=== PATIENT | female | born 1940 | race Caucasian/White ===

== ENCOUNTER 2025-02-22 19:29 | Observation (INO) ==
[2025-02-22 19:48] VITALS: BMI 29.9
[2025-02-22 19:56] LABS: ABG ALLEN TEST POS; ABG BASE EXCESS 1.2 mmol/L (-2.0-2.0)
--- NOTE | 2025-02-22 20:06 | DR.GENAD ---
HPI Time Seen Time Seen by Provider: 02/22/25 20:03 PCP Primary Care Physician: Sariah Barragan Complaint/Symptoms Chief Complaint Doctors Comments: Patient complain of 3-day history of hypoxia and some shortness of breath. States she also has bodyaches and congestion. Chief Complaint:: Patient ambulated to triage. Patient is here for compliants of three days of shortness or breath and fatigue. she has been checking her oxygen at home and its been in the 70s. Pt denies any chest pain, nausea, body aches or congestion. Self Treatment fo Chief Complaint: none COVID-19 Coronavirus risk:travel/contact w/high risk person: No Has patient experienced Coronavirus symptoms: No Source History Provided: Patient Mode of Arrival Mode of Arrival: Ambulatory Timing Onset of Chief Complaint: 02/20/25 PMH PMH Past Medical History: Yes Past Medical History: Arthritis, Dyslipidemia, Hypertension and Hyperthyroidism Past Medical History Comment: lupus, Past Surgical History: Yes Surgical History: Joint Replacement and Ortho Surgery Family History History of Family Medical Conditions: Yes Family Medical History: Diabetes Mellitus, Cancer, [place], Coronary Artery Disease and Hypertension Travel Risk Coronavirus risk:travel/contact w/high risk person: No Has patient experienced Coronavirus symptoms: No Infectious screening In the last 2 months have you had wt loss of >10#?: NO Have you had fever, night sweats or hemotysis?: No Have you traveled outside the country in the last 6 months?: No Isolation: Standard ROS Review of Systems Constitutional: Other (shortness of breath,hypoxia) Eyes: No Symptoms Reported ENTM: No Symptoms Reported Respiratoy: Short of Breath and Other (hypoxia) Cardiovascular: No Symptoms Reported Gastrointestinal/Abdominal: No Symptoms Reported Genitourinary: No Symptoms Reported Neurological: No Symptoms Reported Musculoskeletal: No Symptoms Reported Integumentary: No Symptoms Reported Hematologic/Lymphatic: No Symptoms Reported Endocrine: No Symptoms Reported Psychiatric: No Symptoms Reported PE Vital Signs Vitals: Vital Signs Temperature 99.5 F Pulse Rate 67 Pulse Rate 67 Pulse Rate 68 Pulse Rate 77 Pulse Rate 72 Pulse Rate 79 Pulse Rate 64 Pulse Rate 64 Pulse Rate 64 Pulse Rate 64 Pulse Rate 64 Pulse Rate 63 Pulse Rate 64 Pulse Rate 65 Pulse Rate 65 Pulse Rate 68 Pulse Rate 68 Pulse Rate 71 Pulse Rate 68 Pulse Rate 85 Pulse Rate 67 Pulse Rate 68 Pulse Rate 68 Pulse Rate 66 Pulse Rate 68 Pulse Rate 67 Pulse Rate 67 Pulse Rate 68 Pulse Rate 67 Pulse Rate 71 Pulse Rate 69 Pulse Rate 72 Pulse Rate 76 Respiratory Rate 18 Blood Pressure 152/67 Blood Pressure 135/65 Blood Pressure 135/65 Blood Pressure 135/65 Blood Pressure 135/65 Blood Pressure 135/63 Blood Pressure 133/60 Blood Pressure 133/60 Blood Pressure 133/60 Blood Pressure 133/60 Blood Pressure 135/63 Blood Pressure 130/59 Blood Pressure 147/67 Blood Pressure 147/67 Blood Pressure 147/67 Blood Pressure 141/66 Blood Pressure 141/65 Blood Pressure 141/65 Blood Pressure 144/65 Blood Pressure 138/64 Blood Pressure 151/70 Blood Pressure 151/70 O2 Sat by Pulse Oximetry 95 O2 Sat by Pulse Oximetry 95 O2 Sat by Pulse Oximetry 100 O2 Sat by Pulse Oximetry 97 O2 Sat by Pulse Oximetry 95 O2 Sat by Pulse Oximetry 93 O2 Sat by Pulse Oximetry 95 O2 Sat by Pulse Oximetry 94 O2 Sat by Pulse Oximetry 95 O2 Sat by Pulse Oximetry 95 O2 Sat by Pulse Oximetry 95 O2 Sat by Pulse Oximetry 96 O2 Sat by Pulse Oximetry 95 O2 Sat by Pulse Oximetry 96 O2 Sat by Pulse Oximetry 96 O2 Sat by Pulse Oximetry 95 O2 Sat by Pulse Oximetry 97 O2 Sat by Pulse Oximetry 94 O2 Sat by Pulse Oximetry 97 O2 Sat by Pulse Oximetry 74 O2 Sat by Pulse Oximetry 96 O2 Sat by Pulse Oximetry 95 O2 Sat by Pulse Oximetry 95 O2 Sat by Pulse Oximetry 94 O2 Sat by Pulse Oximetry 95 O2 Sat by Pulse Oximetry 94 O2 Sat by Pulse Oximetry 94 O2 Sat by Pulse Oximetry 94 O2 Sat by Pulse Oximetry 95 O2 Sat by Pulse Oximetry 89 O2 Sat by Pulse Oximetry 87 O2 Sat by Pulse Oximetry 91 O2 Sat by Pulse Oximetry 72 General Limitations: Physical Limitation (gets sob if she ambulates 30 feet) General Appearance: In Distress (mild distress at rest,moderate distress when ambulating) Head Head Exam: Normal Inspection, Atraumatic and Normocephalic Eyes Eye exam: Normal Appearance ENT ENT Exam: Normal Exam External Ear Exam: Normal External Inspection TM/Canal Exam: Bilateral: Normal Nose Exam: Normal Nose Exam Mouth Exam: Normal Inspection Throat Exam: Normal Inspection Neck Neck Exam: Normal Inspection Chest Chest Inspection: Normal Inspection and Symmetric Chest Wall Rise Respiratory Respiratory Exam: Prolonged Expiratory Phase Respiratory Exam: Bilateral: Decreased Breath Sounds and Lower: Decreased Breath Sounds Cardiovascular Cardiovascular Exam: Regular Rate Abdominal Exam Abdominal Exam: Normal Inspection, Normal Bowel Sounds and Soft Extremities Extremities Exam: Normal Inspection Back Back Exam: Normal Inspection Neurologic Neurological Exam: Alert, Oriented X3 and CN II-XII Intact Psychiatric Psychiatric Exam: Depressed MDM Differential Diagnosis Differential Diagnosis: viral urti,pneumonia,copd,chf,ami,covid,influenza, COURSE Treatment Treatment: This patient remained relatively stable lungs we kept oxygen on her here in the ER. Wound we allowed her to go to the bathroom to urinate and when she came back O2 sat all ranges dropped to the low 80s. Patient had a workup done for hypoxia and shortness of breath. Her COVID respiratory panel was negative she had a D-dimer that was done over 0.51 was low she had a BMP done was 239 she had a ABG initially when she got here pH was 7.45 pCO2 36 pO2 was 53 HCO3 was 25 and O2 sat was 89%. This patient did have a metabolic panel done this is a sodium was 130 potassium 4.6 her BUN was 16 creatinine 1.38 blood sugar was 149 she did have a CBC done WBC was only 9.7. This patient also had a chest x-ray done that showed that there was not an infiltrate she just had some elevation of her right hemidiaphragm. The troponin that was done it was 11.4. We did give the patient 40 of Lasix in the ER for her peripheral edema and she had a magnesium level of 1.8 so she got 400 mg of magnesium oxide also in the emergency department. This patient also got a DuoNeb and Solu-Medrol 125 mg IV and was maintaining her oxygen at 2 L/min with O2 sat on the oxygen maintaining 94 to 96%. This patient was discussed for admission with Dr. Riley at 0 2:40 AM. She said the patient could be accepted to her services. They called the case management and they said the patient could be referred to observation. Patient was told of the intent to refer her to observation and she was agreeable to the observation. ROR Labs Reviewed Laboratory Results Reviewed?: Yes 02/22/25 19:53 02/22/25 19:53 Laboratory: WBC 9.7 X10^3/uL (3.6-10.0) 02/22/25 19:53 RBC 3.21 X10^6/uL (3.5-5.4) L 02/22/25 19:53 Hgb 9.2 g/dL (12.0-16.0) L 02/22/25 19:53 Hct 27.0 % (36.0-47.0) L 02/22/25 19:53 MCV 84.1 fL (80.0-100.0) 02/22/25 19:53 MCH 28.5 pg (27.0-34.0) 02/22/25 19:53 MCHC 33.9 g/dL (33.0-35.0) 02/22/25 19:53 RDW 13.9 % (11.6-16.5) 02/22/25 19:53 Plt Count 199 X10^3/uL (150.0-450.0) 02/22/25 19:53 MPV 8.9 fL (7.4-11.0) 02/22/25 19:53 Neut % (Auto) 69.1 % (42.0-75.0) 02/22/25 19:53 Lymph % (Auto) 9.9 % (21.0-51.0) L 02/22/25 19:53 [place] % (Auto) 16.2 % (0.0-13.0) H 02/22/25 19:53 Eos % (Auto) 4.0 % (0.9-2.9) H 02/22/25 19:53 Baso % (Auto) 0.8 % (0.2-1.0) 02/22/25 19:53 Neut # (Auto) 6.7 x10^3/uL (2.2-4.8) H 02/22/25 19:53 Lymph # (Auto) 1.0 X10^3/uL (1.3-2.9) L 02/22/25 19:53 [place] # (Auto) 1.6 x10^3/uL (0.3-0.8) H 02/22/25 19:53 Eos # (Auto) 0.4 x10^3/uL (0.0-0.2) H 02/22/25 19:53 Baso # (Auto) 0.1 X10^3/uL (0.0-0.1) 02/22/25 19:53 Absolute Nucleated RBC 0.0 /100WBC 02/22/25 19:53 D-Dimer 0.51 ug/ml (0.0-0.57) 02/22/25 19:53 Sample Site Lr 02/22/25 19:50 ABG pH 7.450 (7.35-7.45) 02/22/25 19:50 ABG pCO2 36.0 mmHg (35.0-45.0) 02/22/25 19:50 ABG pO2 53.0 mmHg (80.0-100.0) L 02/22/25 19:50 ABG HCO3 25.0 mmol/L (22-26) 02/22/25 19:50 ABG O2 Saturation 89.0 % (90-100) L 02/22/25 19:50 ABG Base Excess 1.2 mmol/L (-2.0-2.0) 02/22/25 19:50 Paulie Test Pos 02/22/25 19:50 A-a Gradient 52.0 mmHg 02/22/25 19:50 FiO2 21.0 02/22/25 19:50 Blood Gas Comments Domi well ae 02/22/25 19:50 Sodium 130 mmol/L (136-145) L 02/22/25 19:53 Corrected Sodium 131 mmol/L (136-145) L 02/22/25 19:53 Potassium 4.6 mmol/L (3.5-5.1) 02/22/25 19:53 Chloride 97 mmol/L (98-107) L 02/22/25 19:53 Carbon Dioxide 24.6 mmol/L (21-32) 02/22/25 19:53 BUN 16 mg/dL (7-18) 02/22/25 19:53 Creatinine 1.38 mg/dL (0.55-1.02) H 02/22/25 19:53 Est GFR (MDRD) Af Amer 47 (>60) L 02/22/25 19:53 Est GFR (MDRD) Non-Af 39 (>60) L 02/22/25 19:53 Glucose 149 mg/dL (65-99) H 02/22/25 19:53 Calcium 8.8 mg/dL (8.5-10.1) 02/22/25 19:53 Corrected Calcium TNP 02/22/25 19:53 Magnesium 1.8 mg/dL (2.0-2.9) L 02/22/25 19:53 Total Bilirubin 0.40 mg/dL (0.2-1.0) 02/22/25 19:53 AST 13 Units/L (15-37) L 02/22/25 19:53 ALT 13 Units/L (12-78) 02/22/25 19:53 Alkaline Phosphatase 65 Units/L (46-116) 02/22/25 19:53 Creatine Kinase 57 Units/L (26-192) 02/22/25 19:53 Troponin I High Sens 11.4 ng/L (4.0-60.0) 02/22/25 19:53 B-Natriuretic Peptide 239 pg/mL (0-79) H 02/22/25 19:53 Total Protein 6.6 g/dL (6.4-8.2) 02/22/25 19:53 Albumin 3.6 g/dL (3.4-5.0) 02/22/25 19:53 Globulin 3.0 g/dL (2.5-4.5) 02/22/25 19:53 Albumin/Globulin Ratio 1.2 Ratio (1.1-2.1) 02/22/25 19:53 SARS-CoV-2 (PCR) Negative (NEGATIVE) 02/22/25 19:55 Influenza Type A (PCR) Negative (NEGATIVE) 02/22/25 19:55 Influenza Type B (PCR) Negative (NEGATIVE) 02/22/25 19:55 RSV (PCR) Negative (NEGATIVE) 02/22/25 19:55 Opioid Opioid Risk Tool Age (Herson box if 16-45): No History of Preadolescent Sexual Abuse: No Total: 0 Total Score Risk Category: Low Risk Copyright: Karl DUKES predicting aberrant behaviors Discharge Plan Diagnosis Discharge Problem: Hypoxia, Mild congestive heart failure, Hypomagnesemia, Hyponatremia Discharge Plan Patient Disposition: 09 ADMITTED INPATIENT Condition: Stable Orders to Discharge Patient Discharge Orders: Transfer (Routine); Ordered 02/23/25 Ordered By: Kermit Rios
[2025-02-22 20:11] LABS: BASOPHILS # (AUTO) 0.1 X10^3/uL (0.0-0.1); BASOPHILS % (AUTO) 0.8 % (0.2-1.0); EOSINOPHILS # (AUTO) 0.4 x10^3/uL (0.0-0.2); HEMOGLOBIN 9.2 g/dL (12.0-16.0); LYMPHOCYTES % (AUTO) 9.9 % (21.0-51.0); MEAN CORPUSCULAR HEMOGLOBIN 28.5 pg (27.0-34.0); MEAN CORPUSCULAR HGB CONC 33.9 g/dL (33.0-35.0); MEAN CORPUSCULAR VOLUME 84.1 fL (80.0-100.0); MEAN PLATELET VOLUME 8.9 fL (7.4-11.0); MONOCYTES # (AUTO) 1.6 x10^3/uL (0.3-0.8); MONOCYTES % (AUTO) 16.2 % (0.0-13.0); NEUTROPHILS # (AUTO) 6.7 x10^3/uL (2.2-4.8); NEUTROPHILS % (AUTO) 69.1 % (42.0-75.0); PLATELET COUNT 199 X10^3/uL (150.0-450.0); RED BLOOD COUNT 3.21 X10^6/uL (3.5-5.4); RED CELL DISTRIBUTION WIDTH 13.9 % (11.6-16.5); WHITE BLOOD COUNT 9.7 X10^3/uL (3.6-10.0)
[2025-02-22 20:23] LABS: ALANINE AMINOTRANSFERASE 13 Units/L (12-78); ALBUMIN 3.6 g/dL (3.4-5.0); ALKALINE PHOSPHATASE 65 Units/L (46-116); ASPARTATE AMINO TRANSFERASE 13 Units/L (15-37); BLOOD UREA NITROGEN 16 mg/dL (7-18); CALCIUM 8.8 mg/dL (8.5-10.1); CARBON DIOXIDE 24.6 mmol/L (21-32); CHLORIDE 97 mmol/L (98-107); COR NA(FOR HYPERGLY) 131 mmol/L (136-145); CREATINE KINASE 57 Units/L (26-192); CREATININE 1.38 mg/dL (0.55-1.02); GLUCOSE 149 mg/dL (65-99); MAGNESIUM 1.8 mg/dL (2.0-2.9); POTASSIUM 4.6 mmol/L (3.5-5.1); SODIUM 130 mmol/L (136-145); TOTAL PROTEIN 6.6 g/dL (6.4-8.2); eGFR NON BLACK RACES 39 (>60)
--- NOTE | 2025-02-23 01:21 | RAD ---
EXAM: CHEST, 1 VIEW HISTORY: compliants of three days of shortness or breath and fatigue. she has been checking her oxygen at home and its been in the 70s.; COMPARISON: 05/31/2016 FINDINGS: The trachea is midline. The cardiac silhouette is unremarkable. Right hemidiaphragm is elevated. T he lungs are clear without focal infiltrate or effusion. The bony thorax is unremarkable. IMPRESSION: Elevation of the right hemidiaphragm. No active cardiopulmonary disease THIS IS AN ELECTRONICALLY VERIFIED FINAL REPORT 02/23/2025 1:17 AM - Electronically signed by Rg Perales MD
[2025-02-23] MEDS: DUONEB 0.5 MG/3 MG (3 mL) NEB ONE (01:44)
[2025-02-23] MEDS: SOLU-Medrol 125 MG VIAL IVP ONE (01:44)
[2025-02-23] MEDS: MAG-OX TAB PO ONE (02:02)
[2025-02-23] MEDS: LASIX IVP ONE (02:02)
[2025-02-23 05:16] LABS: BASOPHILS % (AUTO) 0.3 % (0.2-1.0); EOSINOPHILS # (AUTO) 0.1 x10^3/uL (0.0-0.2); EOSINOPHILS % (AUTO) 1.7 % (0.9-2.9); HEMATOCRIT 27.8 % (36.0-47.0); HEMOGLOBIN 9.2 g/dL (12.0-16.0); LYMPHOCYTES # (AUTO) 0.6 X10^3/uL (1.3-2.9); LYMPHOCYTES % (AUTO) 7.1 % (21.0-51.0); MEAN CORPUSCULAR HEMOGLOBIN 27.8 pg (27.0-34.0); MEAN CORPUSCULAR HGB CONC 33.1 g/dL (33.0-35.0); MEAN PLATELET VOLUME 9.3 fL (7.4-11.0); MONOCYTES # (AUTO) 0.4 x10^3/uL (0.3-0.8); NEUTROPHILS # (AUTO) 6.9 x10^3/uL (2.2-4.8); NEUTROPHILS % (AUTO) 85.9 % (42.0-75.0); PLATELET COUNT 212 X10^3/uL (150.0-450.0); RED BLOOD COUNT 3.32 X10^6/uL (3.5-5.4); RED CELL DISTRIBUTION WIDTH 13.8 % (11.6-16.5); WHITE BLOOD COUNT 8.1 X10^3/uL (3.6-10.0)
[2025-02-23 05:45] LABS: ALANINE AMINOTRANSFERASE 16 Units/L (12-78); ALBUMIN 3.7 g/dL (3.4-5.0); ALKALINE PHOSPHATASE 66 Units/L (46-116); ASPARTATE AMINO TRANSFERASE 10 Units/L (15-37); BLOOD UREA NITROGEN 16 mg/dL (7-18); CALCIUM 9.3 mg/dL (8.5-10.1); CHLORIDE 98 mmol/L (98-107); COR NA(FOR HYPERGLY) 134 mmol/L (136-145); CREATININE 1.38 mg/dL (0.55-1.02); GLUCOSE 153 mg/dL (65-99); POTASSIUM 4.7 mmol/L (3.5-5.1); SODIUM 133 mmol/L (136-145); TOTAL PROTEIN 6.9 g/dL (6.4-8.2); eGFR NON BLACK RACES 39 (>60)
[2025-02-23] MEDS: MAG-OX TAB PO SCH (08:43)
[2025-02-23] MEDS: PLAQUENIL PO SCH (08:43)
[2025-02-23] MEDS: COREG TAB 25 MG PO SCH (08:43)
[2025-02-23] MEDS: BENICAR PO SCH (08:44)
[2025-02-23] MEDS: SYNTHROID 88 mcg TAB PO SCH (08:44)
[2025-02-23] MEDS: PROCARDIA XL 24-HR PO SCH (08:45)
[2025-02-23] MEDS: ZOLOFT PO SCH (08:45)
[2025-02-23] MEDS: ISOSORBIDE DINITRATE PO SCH (08:46)
[2025-02-23] MEDS: HYDROCHLOROTHIAZIDE 25 MG TAB PO SCH (08:47)
[2025-02-23] MEDS: PriLOSEC PO SCH (08:48)
[2025-02-23] MEDS: ROCEPHIN VIAL 1 GRAM IV SCH (08:48)
[2025-02-23] MEDS: LASIX IVP SCH (08:49)
[2025-02-23] MEDS ORDERED: OLMESARTAN MEDOXOMIL HYDROCHLO PO SCH (09:00)
[2025-02-23] MEDS ORDERED: PATIENT'S HOME MEDICATION (Omeprazole 40 mg capsule,delayed release(DR/EC)) PO SCH (09:00)
[2025-02-23] MEDS ORDERED: [UNRECOGNIZED DRUG - OTHER] PO SCH (09:00)
[2025-02-23] MEDS: PULMICORT NEB TX 0.5 MG NEB SCH (11:08)
--- NOTE | 2025-02-23 11:12 | DR.H&P ---
H&P History & Physical for Day of: H&P Date: 02/23/25 Chief Complaint Chief Complaint: Shortness of breath History of Present Illness History of Present Illness: Ms. Head is a 4-year-old female with a past medical history of hypertension, hypothyroidism, arthritis, hyperlipidemia, GERD and insomnia presented with worsening shortness of breath. She states she noted that her O2 sats on the pulse ox at home was in the low 80s. Denies any cough or congestion. She does not use oxygen at home. ER workup showed elevated BNP, negative D-dimer, troponin negative. ABG was concerning for hypoxia. She was placed on nasal cannula at 3 to 4 L. Chest x-ray did not show any acute changes. She was started on IV Rocephin and IV Lasix. She is currently on 3.5 L nasal cannula. She does have lower extremity edema. Denies any previous history of CAD or CHF. Labs/imaging reviewed: -WBC 8.1 hemoglobin 9.2 potassium 4.7 creatinine 1.38 BNP 239 troponin negative D-dimer negative -ABG 7.4 , 89% Plan: Wean O2 as tolerated, add bronchodilators. Will order CTA chest to evaluate further. Continue IV antibiotics. Continue IV Lasix. Patient has not had an echocardiogram done in a while. Resume home medications. Monitor I's and O's, daily weight. Physical therapy as tolerated. Monitor a.m. labs and im aging. Time spent for clinical assessment, reviewing labs and imaging, physical exam, decision making and documentation greater than 45 minutes. Past Medical History Past Medical History: Arthritis, Dyslipidemia, Hypertension and Hyperthyroidism Past Surgical History Surgical History: [employer] Surgery and Ortho Surgery Family History Family Medical History: Diabetes Mellitus, Cancer, [place], Coronary Artery Disease and Hypertension Social History Does patient currently use any type of tobacco product: No Type of Tobacco Use: None Does any household member use tobacco: No Alcohol Use: None Drug Use: None Medications Home Medications: Home Medications Medication Instructions Recorded Confirmed Type Olmesartan Medoxomil-Hydrochlo 40 mg PO DAILY 05/07/14 02/23/25 History [Benicar HCT 40 mg/25 mg] carvedilol 25 mg tablet 25 mg PO BID 02/22/25 02/22/25 History hydroxychloroquine 200 mg tablet 200 mg PO QDAY 02/22/25 02/22/25 History isosorbide dinitrate 5 mg tablet 5 mg PO BID 02/22/25 02/22/25 History levothyroxine 88 mcg tablet 88 mcg PO QDAY 02/22/25 02/22/25 History nifedipine 60 mg tablet,extended 60 mg PO BID 02/22/25 02/22/25 History release 24 hr omeprazole 40 mg capsule,delayed 40 mg PO QDAY 02/22/25 02/22/25 History release sertraline 50 mg tablet 50 mg PO QDAY 02/22/25 02/22/25 History zolpidem 10 mg tablet 10 mg PO QPM PRN 02/22/25 02/22/25 History meloxicam 15 mg tablet 15 mg PO QDAY 02/23/25 02/23/25 History ropinirole 1 mg tablet 1 mg PO QPM 02/23/25 02/23/25 History sulfasalazine 500 mg tablet 500 mg PO DAILY 02/23/25 02/23/25 History Allergies Allergies Allergy/AdvReac Type Severity Reaction Status Date / Time No Known Allergies Allergy Verified 02/22/25 20:07 Labs 02/23/25 04:36 02/23/25 04:36 Labs: Laboratory WBC 8.1 X10^3/uL (3.6-10.0) 02/23/25 04:36 RBC 3.32 X10^6/uL (3.5-5.4) L 02/23/25 04:36 Hgb 9.2 g/dL (12.0-16.0) L 02/23/25 04:36 Hct 27.8 % (36.0-47.0) L 02/23/25 04:36 MCV 84.0 fL (80.0-100.0) 02/23/25 04:36 MCH 27.8 pg (27.0-34.0) 02/23/25 04:36 MCHC 33.1 g/dL (33.0-35.0) 02/23/25 04:36 RDW 13.8 % (11.6-16.5) 02/23/25 04:36 Plt Count 212 X10^3/uL (150.0-450.0) 02/23/25 04:36 MPV 9.3 fL (7.4-11.0) 02/23/25 04:36 Neut % (Auto) 85.9 % (42.0-75.0) H 02/23/25 04:36 Lymph % (Auto) 7.1 % (21.0-51.0) L 02/23/25 04:36 [place] % (Auto) 5.0 % (0.0-13.0) 02/23/25 04:36 Eos % (Auto) 1.7 % (0.9-2.9) 02/23/25 04:36 Baso % (Auto) 0.3 % (0.2-1.0) 02/23/25 04:36 Neut # (Auto) 6.9 x10^3/uL (2.2-4.8) H 02/23/25 04:36 Lymph # (Auto) 0.6 X10^3/uL (1.3-2.9) L 02/23/25 04:36 [place] # (Auto) 0.4 x10^3/uL (0.3-0.8) 02/23/25 04:36 Eos # (Auto) 0.1 x10^3/uL (0.0-0.2) 02/23/25 04:36 Baso # (Auto) 0.0 X10^3/uL (0.0-0.1) 02/23/25 04:36 Absolute Nucleated RBC 0.1 /100WBC 02/23/25 04:36 D-Dimer 0.51 ug/ml (0.0-0.57) 02/22/25 19:53 Sample Site Lr 02/22/25 19:50 ABG pH 7.450 (7.35-7.45) 02/22/25 19:50 ABG pCO2 36.0 mmHg (35.0-45.0) 02/22/25 19:50 ABG pO2 53.0 mmHg (80.0-100.0) L 02/22/25 19:50 ABG HCO3 25.0 mmol/L (22-26) 02/22/25 19:50 ABG O2 Saturation 89.0 % (90-100) L 02/22/25 19:50 ABG Base Excess 1.2 mmol/L (-2.0-2.0) 02/22/25 19:50 Paulie Test Pos 02/22/25 19:50 A-a Gradient 52.0 mmHg 02/22/25 19:50 FiO2 21.0 02/22/25 19:50 Blood Gas Comments Domi well ae 02/22/25 19:50 Sodium 133 mmol/L (136-145) L 02/23/25 04:36 Corrected Sodium 134 mmol/L (136-145) L 02/23/25 04:36 Potassium 4.7 mmol/L (3.5-5.1) 02/23/25 04:36 Chloride 98 mmol/L (98-107) 02/23/25 04:36 Carbon Dioxide 26.0 mmol/L (21-32) 02/23/25 04:36 BUN 16 mg/dL (7-18) 02/23/25 04:36 Creatinine 1.38 mg/dL (0.55-1.02) H 02/23/25 04:36 Est GFR (MDRD) Af Amer 47 (>60) L 02/23/25 04:36 Est GFR (MDRD) Non-Af 39 (>60) L 02/23/25 04:36 Glucose 153 mg/dL (65-99) H 02/23/25 04:36 Calcium 9.3 mg/dL (8.5-10.1) 02/23/25 04:36 Corrected Calcium TNP 02/23/25 04:36 Magnesium 1.8 mg/dL (2.0-2.9) L 02/22/25 19:53 Total Bilirubin 0.50 mg/dL (0.2-1.0) 02/23/25 04:36 AST 10 Units/L (15-37) L 02/23/25 04:36 ALT 16 Units/L (12-78) 02/23/25 04:36 Alkaline Phosphatase 66 Units/L (46-116) 02/23/25 04:36 Creatine Kinase 57 Units/L (26-192) 02/22/25 19:53 Troponin I High Sens 11.4 ng/L (4.0-60.0) 02/22/25 19:53 B-Natriuretic Peptide 239 pg/mL (0-79) H 02/22/25 19:53 Total Protein 6.9 g/dL (6.4-8.2) 02/23/25 04:36 Albumin 3.7 g/dL (3.4-5.0) 02/23/25 04:36 Globulin 3.2 g/dL (2.5-4.5) 02/23/25 04:36 Albumin/Globulin Ratio 1.2 Ratio (1.1-2.1) 02/23/25 04:36 SARS-CoV-2 (PCR) Negative (NEGATIVE) 02/22/25 19:55 Influenza Type A (PCR) Negative (NEGATIVE) 02/22/25 19:55 Influenza Type B (PCR) Negative (NEGATIVE) 02/22/25 19:55 RSV (PCR) Negative (NEGATIVE) 02/22/25 19:55 Review of Systems Constitutional: Weakness Eyes: No Symptoms Reported ENT: No Symptoms Reported Respiratory: Shortness of Breath and SOB with Excertion Cardiovascular: Edema Gastrointestinal: No Symptoms Reported Genitourinary: No Symptoms Reported Musculoskeletal: No Symptoms Reported Skin: No Symptoms Reported Neurological: No Symptoms Reported Physical Exam Vital Signs: Vital Signs Temperature 97.9 F Temperature 97.4 F Pulse Rate [Brachial] 73 Pulse Rate [Brachial] 72 Pulse Rate 67 Respiratory Rate 19 Respiratory Rate 19 Blood Pressure [Right Arm] 145/67 Blood Pressure [Right Arm] 158/70 O2 Sat by Pulse Oximetry 98 O2 Sat by Pulse Oximetry 93 O2 Sat by Pulse Oximetry 94 Oriented: Normal Eyes: Normal Respiratory: RUL Rhonchi, RLL Rales and LLL Rales Cardiovascular: Normal and Edema Auscultation: Bowel Sounds: Normal Palpation: Normal Tenderness: Normal Skin: Normal Musculoskeletal: Normal Psychiatric: Normal Mood Description: Calm Affect: Normal Speech Pattern: Clear and Appropriate Assessment/Plan (1) Acute respiratory failure: Qualifiers: Respiratory failure complication: hypoxia Qualified Code(s): J96.01 - Acute respiratory failure with hypoxia Status: Acute (2) Edema: Qualifiers: Edema type: unspecified Qualified Code(s): R60.9 - Edema, unspecified Status: Acute (3) Hypertension: Qualifiers: Hypertension type: primary hypertension Qualified Code(s): I10 - Essential (primary) hypertension Status: Chronic (4) GERD (gastroesophageal reflux disease): Qualifiers: Esophagitis presence: esophagitis presence not specified Qualified Code(s): K21.9 - Gastro-esophageal reflux disease without esophagitis Status: Chronic (5) Hypothyroidism: Qualifiers: Hypothyroidism type: acquired Qualified Code(s): E03.9 - Hypothyroidism, unspecified Status: Chronic (6) History of anemia: Status: Chronic (7) Anxiety: Status: Chronic Review H&P Reviewed: Yes Patient was examined?: Yes
--- NOTE | 2025-02-23 12:10 | CT ---
EXAM: CTA, CHEST HISTORY: WORSENING HYPOXIA ; SOB COMPARISON: No relevant prior studies were available for comparison at the time of interpretation.. TECHNIQUE: CT images were obtained. Multiplanar reconstructions were created on a separate workstation and used during interpretation. All CT scans at this facility is dose modulation, iterative reconstruction, an d/or weight-based dosing as appropriate to reduce radiation to levels as low as reasonably achievable (ALARA). Postprocessing details, radiation dose, and contrast dose (if applicable) are recorded in t he patient's medical record. 3D maximum intensity projection images were obtained and evaluated. FINDINGS: Lower Neck: No acute soft tissue abnormality. No actionable thyroid nodule. Lymph nodes: No visualized cervical, supraclavicular, axillary, mediastinal, or hilar adenopathy Upper abdomen: No acute abnormality identified in the visualized upper abdomen. Cardiomediastinum: No right heart strain. Coronary calcifications noted Vascular: The thoracic aorta is widely patent. No significant stenosis of the major branch vessels. There is no thrombus within the pulmonary arteries down to the subsegmental level. Pulmonary arterie s are dilated Lungs: There is a right hemidiaphragm elevation . There are ground-glass opacities seen in a perivas cular distribution. There is septal thickening. There is left base atelectasis. There is a consoli dation with air bronchograms in the inferior portion of the right upper lobe. No effusion or pneumot horax Osseous structures: No acute osseous abnormality. No destructive osseous lesion. IMPRESSION: 1. No PE 2. Findings suggest heart failure exacerbation with pulmonary edema 3. Right hemidiaphragm elevation and compressive atelectasis are noted. Inferior right upper lobe co nsolidation with air bronchograms is noted. Pneumonia can not be ruled out THIS IS AN ELECTRONICALLY VERIFIED FINAL REPORT 02/23/2025 12:07 PM - Electronically signed by Genaro Bhatia MD
[2025-02-23] MEDS ORDERED: NS 250 ML IV 25 ML IV PRN (13:41)
[2025-02-23] MEDS: DUONEB 0.5 MG/3 MG (3 mL) NEB SCH (13:45)
[2025-02-23] MEDS ORDERED: NS 250 ML IV 250 ML IV ONE (15:03)
[2025-02-23] MEDS: ZITHROMAX INJ 500 MG VIAL 500 MG in NS 250 ML IV 250 ML IV SCH (16:10)
[2025-02-23] MEDS: MAALOX or MYLANTA PO PRN (21:16)
[2025-02-23] MEDS: AMBIEN PO PRN (21:17)
[2025-02-23] MEDS: REQUIP PO SCH (21:17)
[2025-02-24 04:52] LABS: BASOPHILS # (AUTO) 0.1 X10^3/uL (0.0-0.1); BASOPHILS % (AUTO) 1.3 % (0.2-1.0); EOSINOPHILS # (AUTO) 0.2 x10^3/uL (0.0-0.2); EOSINOPHILS % (AUTO) 1.9 % (0.9-2.9); HEMATOCRIT 25.2 % (36.0-47.0); HEMOGLOBIN 8.5 g/dL (12.0-16.0); LYMPHOCYTES # (AUTO) 1.5 X10^3/uL (1.3-2.9); LYMPHOCYTES % (AUTO) 16.8 % (21.0-51.0); MEAN CORPUSCULAR HGB CONC 33.7 g/dL (33.0-35.0); MEAN PLATELET VOLUME 8.8 fL (7.4-11.0); MONOCYTES # (AUTO) 1.4 x10^3/uL (0.3-0.8); MONOCYTES % (AUTO) 15.7 % (0.0-13.0); NEUTROPHILS # (AUTO) 5.7 x10^3/uL (2.2-4.8); NEUTROPHILS % (AUTO) 64.3 % (42.0-75.0); PLATELET COUNT 238 X10^3/uL (150.0-450.0); RED BLOOD COUNT 3.03 X10^6/uL (3.5-5.4); WHITE BLOOD COUNT 8.9 X10^3/uL (3.6-10.0)
[2025-02-24 05:07] LABS: ALBUMIN 3.2 g/dL (3.4-5.0); CALCIUM 9.1 mg/dL (8.5-10.1); CARBON DIOXIDE 29.8 mmol/L (21-32); COR CA(FOR HYPOALB) 9.7 mg/dL (8.5-10.1); CREATININE 1.45 mg/dL (0.55-1.02); MAGNESIUM 1.9 mg/dL (2.0-2.9); POTASSIUM 3.8 mmol/L (3.5-5.1); TOTAL PROTEIN 6.2 g/dL (6.4-8.2)
--- NOTE | 2025-02-24 10:59 | PCM.PROG ---
Progress Note Progress Note for Day of Date of Exam: 02/24/25 Subjective Subjective: Patient seen at bedside, no acute events overnight. She is currently on 3 L nasal cannula. She reports feeling better. She has been ambulating to the bathroom. CTA chest done yesterday showed pneumonia and CHF exacerbation. Patient is currently on IV antibiotics and IV Lasix. Her lower extremity edema has improved. Labs/imaging reviewed: -WBC 8.9 hemoglobin 8.5 potassium 3.8 creatinine 1.45 magnesium 1.9 -CTA chest reviewed Plan: Wean O2 as tolerated. Continue IV antibiotics. Continue bronchodilators and IS. Continue IV Lasix, monitor I's and O's and daily weight. Continue home medications. Replace electrolytes as per protocol. Echocardiogram ordered for tomorrow. Monitor a.m. labs and imaging. Time spent for clinical assessment, physical exam, reviewing labs and imaging, decision making and documentation greater than 45 minutes. Past Medical Family Social History Allergies: Allergies No Known Allergies Allergy (Verified 02/22/25 20:07) Vital Signs and I&O's Vital Signs: Vital Signs Temperature 98.3 F Temperature 97.9 F Pulse Rate [Brachial] 80 Pulse Rate [Brachial] 68 Pulse Rate 66 Respiratory Rate 20 Respiratory Rate 20 Blood Pressure [Left Arm] 150/67 Blood Pressure [Left Arm] 142/63 Blood Pressure [Right Arm] 160/81 Blood Pressure [Right Arm] 160/81 O2 Sat by Pulse Oximetry 96 O2 Sat by Pulse Oximetry 98 O2 Sat by Pulse Oximetry 94 Intake and Output: Intake & Output 02/21/25 02/22/25 02/23/25 02/24/25 23:59 23:59 23:59 23:59 Intake Total 730 / 730 Balance 730 / 730 Physical Exam Oriented: Normal Eyes: Normal Respiratory: Generalized and Rales Cardiovascular: Normal and Edema Auscultation: Bowel Sounds: Normal Palpation: Normal Tenderness: Normal Skin: Normal Musculoskeletal: Normal Psychiatric: Normal Mood Description: Calm Affect: Normal Speech Pattern: Clear and Appropriate Laboratory and Diagnostics 02/24/25 04:28 02/24/25 04:28 Labs: Laboratory WBC 8.9 X10^3/uL (3.6-10.0) 02/24/25 04:28 RBC 3.03 X10^6/uL (3.5-5.4) L 02/24/25 04:28 Hgb 8.5 g/dL (12.0-16.0) L 02/24/25 04: Hct 25.2 % (36.0-47.0) L 02/24/25 04: MCV 83.0 fL (80.0-100.0) 02/24/25 04: MCH 28.0 pg (27.0-34.0) 02/24/25 04: MCHC 33.7 g/dL (33.0-35.0) 02/24/25 04: RDW 14.0 % (11.6-16.5) 02/24/25 04: Plt Count 238 X10^3/uL (150.0-450.0) 02/24/25 04: MPV 8.8 fL (7.4-11.0) 02/24/25 04: Neut % (Auto) 64.3 % (42.0-75.0) 02/24/25 04: Lymph % (Auto) 16.8 % (21.0-51.0) L 02/24/25 04:28 [place] % (Auto) 15.7 % (0.0-13.0) H 02/24/25 04: Eos % (Auto) 1.9 % (0.9-2.9) 02/24/25 04: Baso % (Auto) 1.3 % (0.2-1.0) H 02/24/25 04:28 Neut # (Auto) 5.7 x10^3/uL (2.2-4.8) H 02/24/25 04:28 Lymph # (Auto) 1.5 X10^3/uL (1.3-2.9) 02/24/25 04:28 [place] # (Auto) 1.4 x10^3/uL (0.3-0.8) H 02/24/25 04:28 Eos # (Auto) 0.2 x10^3/uL (0.0-0.2) 02/24/25 04:28 Baso # (Auto) 0.1 X10^3/uL (0.0-0.1) 02/24/25 04: Absolute Nucleated RBC 0.0 /100WBC 02/24/25 04:28 D-Dimer 0.51 ug/ml (0.0-0.57) 02/22/25 19:53 Sample Site Lr 02/22/25 19:50 ABG pH 7.450 (7.35-7.45) 02/22/25 19:50 ABG pCO2 36.0 mmHg (35.0-45.0) 02/22/25 19:50 ABG pO2 53.0 mmHg (80.0-100.0) L 02/22/25 19:50 ABG HCO3 25.0 mmol/L (22-26) 02/22/25 19:50 ABG O2 Saturation 89.0 % (90-100) L 02/22/25 19:50 ABG Base Excess 1.2 mmol/L (-2.0-2.0) 02/22/25 19:50 Paulie Test Pos 02/22/25 19:50 A-a Gradient 52.0 mmHg 02/22/25 19:50 FiO2 21.0 02/22/25 19:50 Blood Gas Comments Domi well ae 02/22/25 19:50 Sodium 136 mmol/L (136-145) 02/24/25 04:28 Corrected Sodium 136 mmol/L (136-145) 02/24/25 04:28 Potassium 3.8 mmol/L (3.5-5.1) 02/24/25 04:28 Chloride 97 mmol/L (98-107) L 02/24/25 04:28 Carbon Dioxide 29.8 mmol/L (21-32) 02/24/25 04:28 BUN 22 mg/dL (7-18) H 02/24/25 04:28 Creatinine 1.45 mg/dL (0.55-1.02) H 02/24/25 04:28 Est GFR (MDRD) Af Amer 44 (>60) L 02/24/25 04:28 Est GFR (MDRD) Non-Af 37 (>60) L 02/24/25 04:28 Glucose 112 mg/dL (65-99) H 02/24/25 04:28 Calcium 9.1 mg/dL (8.5-10.1) 02/24/25 04:28 Corrected Calcium 9.7 mg/dL (8.5-10.1) 02/24/25 04:28 Magnesium 1.9 mg/dL (2.0-2.9) L 02/24/25 04:28 Total Bilirubin 0.30 mg/dL (0.2-1.0) 02/24/25 04:28 AST 10 Units/L (15-37) L 02/24/25 04:28 ALT 13 Units/L (12-78) 02/24/25 04:28 Alkaline Phosphatase 58 Units/L (46-116) 02/24/25 04:28 Creatine Kinase 57 Units/L (26-192) 02/22/25 19:53 Troponin I High Sens 11.4 ng/L (4.0-60.0) 02/22/25 19:53 B-Natriuretic Peptide 239 pg/mL (0-79) H 02/22/25 19:53 Total Protein 6.2 g/dL (6.4-8.2) L 02/24/25 04:28 Albumin 3.2 g/dL (3.4-5.0) L 02/24/25 04:28 Globulin 3.0 g/dL (2.5-4.5) 02/24/25 04:28 Albumin/Globulin Ratio 1.1 Ratio (1.1-2.1) 02/24/25 04:28 SARS-CoV-2 (PCR) Negative (NEGATIVE) 02/22/25 19:55 Influenza Type A (PCR) Negative (NEGATIVE) 02/22/25 19:55 Influenza Type B (PCR) Negative (NEGATIVE) 02/22/25 19:55 RSV (PCR) Negative (NEGATIVE) 02/22/25 19:55 Plan (1) Acute respiratory failure: Status: Acute Qualifiers: Respiratory failure complication: hypoxia Qualified Code(s): J96.01 - Acute respiratory failure with hypoxia (2) CHF exacerbation: Status: Acute Qualifiers: Heart failure type: unspecified Qualified Code(s): I50.9 - Heart failure, unspecified (3) Pneumonia: Status: Acute Qualifiers: Pneumonia type: due to unspecified organism Laterality: right Lung location: upper lobe of lung Qualified Code(s): J18.9 - Pneumonia, unspecified organism (4) Hypertension: Status: Chronic Qualifiers: Hypertension type: primary hypertension Qualified Code(s): I10 - Essential (primary) hypertension (5) GERD (gastroesophageal reflux disease): Status: Chronic Qualifiers: Esophagitis presence: esophagitis presence not specified Qualified Code(s): K21.9 - Gastro-esophageal reflux disease without esophagitis (6) Hypothyroidism: Status: Chronic Qualifiers: Hypothyroidism type: acquired Qualified Code(s): E03.9 - Hypothyroidism, unspecified (7) History of anemia: Status: Chronic (8) Anxiety: Status: Chronic
[2025-02-24] MEDS: OMNIPAQUE 350 mg/mL 100 mL BTL 100 ML ONE (19:22)
[2025-02-25 05:47] LABS: BASOPHILS # (AUTO) 0.1 X10^3/uL (0.0-0.1); EOSINOPHILS # (AUTO) 0.5 x10^3/uL (0.0-0.2); EOSINOPHILS % (AUTO) 6.3 % (0.9-2.9); HEMATOCRIT 28.3 % (36.0-47.0); HEMOGLOBIN 9.3 g/dL (12.0-16.0); LYMPHOCYTES # (AUTO) 1.7 X10^3/uL (1.3-2.9); LYMPHOCYTES % (AUTO) 23.2 % (21.0-51.0); MEAN CORPUSCULAR HEMOGLOBIN 27.4 pg (27.0-34.0); MEAN CORPUSCULAR HGB CONC 32.8 g/dL (33.0-35.0); MEAN CORPUSCULAR VOLUME 83.6 fL (80.0-100.0); MEAN PLATELET VOLUME 8.6 fL (7.4-11.0); MONOCYTES # (AUTO) 1.1 x10^3/uL (0.3-0.8); MONOCYTES % (AUTO) 15.2 % (0.0-13.0); NEUTROPHILS # (AUTO) 3.9 x10^3/uL (2.2-4.8); NEUTROPHILS % (AUTO) 54.3 % (42.0-75.0); PLATELET COUNT 279 X10^3/uL (150.0-450.0); RED BLOOD COUNT 3.38 X10^6/uL (3.5-5.4); RED CELL DISTRIBUTION WIDTH 13.9 % (11.6-16.5); WHITE BLOOD COUNT 7.2 X10^3/uL (3.6-10.0)
[2025-02-25 06:23] LABS: ALANINE AMINOTRANSFERASE 14 Units/L (12-78); ALBUMIN 3.5 g/dL (3.4-5.0); ALKALINE PHOSPHATASE 61 Units/L (46-116); ASPARTATE AMINO TRANSFERASE 12 Units/L (15-37); BLOOD UREA NITROGEN 21 mg/dL (7-18); CALCIUM 9.6 mg/dL (8.5-10.1); CARBON DIOXIDE 30.5 mmol/L (21-32); CHLORIDE 95 mmol/L (98-107); CREATININE 1.49 mg/dL (0.55-1.02); GLUCOSE 98 mg/dL (65-99); MAGNESIUM 2.1 mg/dL (2.0-2.9); POTASSIUM 3.9 mmol/L (3.5-5.1); SODIUM 135 mmol/L (136-145); TOTAL PROTEIN 6.7 g/dL (6.4-8.2); eGFR NON BLACK RACES 36 (>60)
[2025-02-25 12:36] VITALS: BP 109/56; PULSE 58; RESP 18; TEMP 97.3; O2SAT 91
--- NOTE | 2025-02-25 15:29 | RAD ---
EXAM: CHEST, 1 VIEW HISTORY: HYPOXIA, CHF; COMPARISON: 02/22/2025 TECHNIQUE: AP portable FINDINGS: Stable cardiac silhouette. Low lung volumes with elevated right hemidiaphragm, similar to comparison . No new areas of consolidation. No large pleural effusion or visible pneumothorax. IMPRESSION: No acute cardiopulmonary findings. Stable low lung volumes and elevated right hemidiaphragm. THIS IS AN ELECTRONICALLY VERIFIED FINAL REPORT 02/25/2025 3:26 PM - Electronically signed by Humphrey Moe MD
== END 2025-02-25 15:57 | disposition home health service (06) ==
LOC: ER 19:29 → MED/SURG 19:29
PROVIDERS: ADMIT Internal Medicine; ATTEND Internal Medicine
DX: Z03.818 Encounter for observation for suspected exposure to other biological agents ruled out; F41.8 Other specified anxiety disorders; E03.8 Other specified hypothyroidism; J96.01 Acute respiratory failure with hypoxia; E87.1 Hypo-osmolality and hyponatremia; R53.1 Weakness; J18.8 Other pneumonia, unspecified organism; I11.0 Hypertensive heart disease with heart failure; R60.0 Localized edema; K21.9 Gastro-esophageal reflux disease without esophagitis; R26.89 Other abnormalities of gait and mobility; E83.42 Hypomagnesemia; M19.90 Unspecified osteoarthritis, unspecified site; E78.5 Hyperlipidemia, unspecified; I50.9 Heart failure, unspecified; D64.89 Other specified anemias